=== PATIENT | female | born 1965 | race Two or more races ===

== ENCOUNTER 2017-07-27 08:31 | Outpatient (CLI) | payer OTHER | END 2017-07-27 08:33 | disposition home or self-care (01) | LOC: SONOGRAMA 08:31 | DX: E04.1 Nontoxic single thyroid nodule (principal) ==

== ENCOUNTER 2018-04-02 12:16 | Outpatient (CLI) | payer OTHER | END 2018-04-02 12:20 | disposition home or self-care (01) | LOC: LAB 12:16 | DX: Z11.9 Encounter for screening for infectious and parasitic diseases, unspecified (principal) ==

== ENCOUNTER 2018-08-27 08:25 | Outpatient (CLI) | payer OTHER | END 2018-08-27 08:34 | disposition home or self-care (01) | LOC: MAMO-SONO 08:25 | DX: N64.59 Other signs and symptoms in breast (principal); N64.89 Other specified disorders of breast; Z12.31 Encounter for screening mammogram for malignant neoplasm of breast; N63.10 Unspecified lump in the right breast, unspecified quadrant; N63.20 Unspecified lump in the left breast, unspecified quadrant ==

== ENCOUNTER 2018-08-27 08:51 | Outpatient (CLI) | payer OTHER | END 2018-08-27 14:54 | disposition home or self-care (01) | LOC: LAB 08:51 | DX: E03.8 Other specified hypothyroidism (principal); I10 Essential (primary) hypertension; E78.00 Pure hypercholesterolemia, unspecified; N39.0 Urinary tract infection, site not specified; Z00.00 Encounter for general adult medical examination without abnormal findings; Z11.4 Encounter for screening for human immunodeficiency virus [HIV]; Z12.11 Encounter for screening for malignant neoplasm of colon; E55.9 Vitamin D deficiency, unspecified; Z21 Asymptomatic human immunodeficiency virus [HIV] infection status; R79.9 Abnormal finding of blood chemistry, unspecified; R79.89 Other specified abnormal findings of blood chemistry ==

== ENCOUNTER 2019-12-30 13:58 | Outpatient (CLI) | payer OTHER | END 2019-12-30 14:02 | disposition home or self-care (01) | LOC: MAMO-SONO 13:58 | PROVIDERS: ATTEND Internal Medicine Cardiovascular Disease | DX: Z12.31 Encounter for screening mammogram for malignant neoplasm of breast (principal); E04.1 Nontoxic single thyroid nodule ==

== ENCOUNTER 2020-06-01 07:12 | Outpatient (CLI) | payer OTHER | END 2020-06-01 07:14 | disposition home or self-care (01) | LOC: RAD 07:12 | PROVIDERS: ATTEND Internal Medicine | DX: M25.511 Pain in right shoulder (principal) ==

== ENCOUNTER 2020-06-04 09:24 | Outpatient (CLI) | payer OTHER | END 2020-06-04 15:00 | disposition home or self-care (01) | LOC: PPH VACUNA 09:24 | DX: Z23 Encounter for immunization (principal) ==

== ENCOUNTER 2020-07-20 05:23 | Day surgery (SDC) | payer OTHER | END 2020-07-20 12:35 | disposition home or self-care (01) | LOC: CIR.AMB 05:23 | PROVIDERS: ATTEND Obstetrics & Gynecology | DX: N84.0 Polyp of corpus uteri (principal); Z20.828 Contact with and (suspected) exposure to other viral communicable diseases ==

== ENCOUNTER 2020-10-13 08:12 | Outpatient (CLI) | payer OTHER | END 2020-10-13 10:23 | disposition home or self-care (01) | LOC: MRI 08:12 | PROVIDERS: ATTEND Neuromusculoskeletal Medicine & OMM | DX: R42 Dizziness and giddiness (principal) | CPT/HCPCS: 70544; 70553 ==

== ENCOUNTER 2020-12-09 07:47 | Outpatient (CLI) | payer OTHER | END 2020-12-09 07:49 | disposition home or self-care (01) | LOC: LAB 07:47 | PROVIDERS: ATTEND Internal Medicine | DX: E03.9 Hypothyroidism, unspecified (principal); D64.9 Anemia, unspecified ==

== ENCOUNTER 2021-01-08 13:47 | Outpatient (CLI) | payer OTHER | END 2021-01-08 13:57 | disposition home or self-care (01) | LOC: RAD 13:47 | PROVIDERS: ATTEND Psychiatry & Neurology Clinical Neurophysiology | DX: R07.89 Other chest pain (principal) ==

== ENCOUNTER → 2021-01-18 07:00 | Outpatient (CLI) | payer OTHER | END | disposition home or self-care (01) | LOC: LAB 07:00 | PROVIDERS: ATTEND Neuromusculoskeletal Medicine & OMM | DX: G62.89 Other specified polyneuropathies (principal); R20.2 Paresthesia of skin; E03.8 Other specified hypothyroidism; E11.9 Type 2 diabetes mellitus without complications ==

== ENCOUNTER 2021-03-15 08:00 | Outpatient (CLI) | payer OTHER | END 2021-03-15 08:30 | disposition home or self-care (01) | LOC: PPH VACUNA 08:00 | PROVIDERS: ATTEND Emergency Medicine Pediatric Emergency Medicine | DX: Z23 Encounter for immunization (principal) ==

== ENCOUNTER 2021-03-16 08:00 | Outpatient (CLI) | payer OTHER | END 2021-03-16 08:30 | disposition home or self-care (01) | LOC: PPH VACUNA 08:00 | PROVIDERS: ATTEND Emergency Medicine Pediatric Emergency Medicine | DX: Z23 Encounter for immunization (principal) ==

== ENCOUNTER → 2021-04-21 10:57 | Outpatient (CLI) | payer OTHER | END | disposition home or self-care (01) | LOC: SONOGRAMA → MAMO-SONO 10:57 | DX: N60.11 Diffuse cystic mastopathy of right breast (principal); N60.12 Diffuse cystic mastopathy of left breast ==

== ENCOUNTER 2022-02-16 14:46 | Outpatient (CLI) | payer OTHER | END 2022-02-16 14:51 | disposition home or self-care (01) | LOC: LAB 14:46 | PROVIDERS: ATTEND Preventive Medicine Occupational Medicine | DX: K29.40 Chronic atrophic gastritis without bleeding (principal); K29.30 Chronic superficial gastritis without bleeding; U07.1 COVID-19 ==

== ENCOUNTER 2022-03-09 07:33 | Outpatient (CLI) | payer OTHER ==
[~2022-03-09 07:33] MED LIST: ANTIVERT12.5 MG PO; FLONASE16 G1 NS
== END 2022-03-09 07:38 | disposition home or self-care (01) ==
LOC: PPH VACUNA 07:33
PROVIDERS: ATTEND Emergency Medicine Pediatric Emergency Medicine
DX: Z23 Encounter for immunization (principal)

== ENCOUNTER 2022-03-23 10:44 | Outpatient (CLI) | payer OTHER | END 2022-03-23 10:55 | disposition home or self-care (01) | LOC: RAD 10:44 | PROVIDERS: ATTEND Internal Medicine Pulmonary Disease | DX: J45.20 Mild intermittent asthma, uncomplicated (principal) ==

== ENCOUNTER 2022-05-03 04:53 | Emergency (ER) | payer OTHER ==
[~2022-05-03] VITALS: Ht 149.9 cm; Wt 64.4 kg
== END 2022-05-03 12:43 | disposition home or self-care (01) ==
LOC: ER 04:53
DX: N30.90 Cystitis, unspecified without hematuria (principal); N39.0 Urinary tract infection, site not specified; R10.9 Unspecified abdominal pain

== ENCOUNTER 2022-05-11 07:14 | Outpatient (CLI) | payer OTHER | END 2022-05-11 07:22 | disposition home or self-care (01) | LOC: SONOGRAMA 07:14 | PROVIDERS: ATTEND Internal Medicine Endocrinology, Diabetes & Metabolism | DX: E04.1 Nontoxic single thyroid nodule (principal); E03.9 Hypothyroidism, unspecified ==

== ENCOUNTER 2022-05-20 06:57 | Outpatient (CLI) | payer OTHER | END 2022-05-20 06:58 | disposition home or self-care (01) | LOC: LAB 06:57 | PROVIDERS: ATTEND Internal Medicine | DX: D64.9 Anemia, unspecified (principal); N39.0 Urinary tract infection, site not specified; R10.9 Unspecified abdominal pain; E03.9 Hypothyroidism, unspecified; E78.5 Hyperlipidemia, unspecified; E55.9 Vitamin D deficiency, unspecified; E11.9 Type 2 diabetes mellitus without complications; Z79.01 Long term (current) use of anticoagulants; I10 Essential (primary) hypertension; R00.2 Palpitations ==

== ENCOUNTER → 2022-05-24 | Outpatient (CLI) | payer OTHER | END | disposition home or self-care (01) | LOC: MAMO-SONO 13:29 | PROVIDERS: ATTEND Internal Medicine Cardiovascular Disease | DX: Z80.3 Family history of malignant neoplasm of breast (principal) ==

== ENCOUNTER 2022-06-01 09:21 | Outpatient (CLI) | payer OTHER | END 2022-06-01 09:31 | disposition home or self-care (01) | LOC: PPH VACUNA 09:21 | PROVIDERS: ATTEND Emergency Medicine Pediatric Emergency Medicine | DX: Z23 Encounter for immunization (principal) ==

== ENCOUNTER 2022-06-29 08:39 | Outpatient (CLI) | payer OTHER | END 2022-06-29 08:43 | disposition home or self-care (01) | LOC: LAB 08:39 | PROVIDERS: ATTEND Internal Medicine | DX: R05.3 Chronic cough (principal); K29.40 Chronic atrophic gastritis without bleeding; L20.89 Other atopic dermatitis; R55 Syncope and collapse; Z13.1 Encounter for screening for diabetes mellitus; Z13.220 Encounter for screening for lipoid disorders; Z13.29 Encounter for screening for other suspected endocrine disorder; E55.9 Vitamin D deficiency, unspecified ==

== ENCOUNTER 2022-08-25 10:22 | Outpatient (CLI) | payer OTHER | END 2022-08-25 10:24 | disposition home or self-care (01) | LOC: LAB 10:22 | PROVIDERS: ATTEND Internal Medicine Rheumatology | DX: M06.9 Rheumatoid arthritis, unspecified (principal); M32.19 Other organ or system involvement in systemic lupus erythematosus; M35.00 Sjogren syndrome, unspecified; M33.13 Other dermatomyositis without myopathy; N39.0 Urinary tract infection, site not specified ==

== ENCOUNTER → 2022-09-14 07:37 | Outpatient (CLI) | payer OTHER | END | disposition home or self-care (01) | LOC: LAB 07:37 | PROVIDERS: ATTEND Internal Medicine Gastroenterology | DX: Z11.52 Encounter for screening for COVID-19 (principal); Z20.822 Contact with and (suspected) exposure to COVID-19; Z20.828 Contact with and (suspected) exposure to other viral communicable diseases ==

== ENCOUNTER 2022-10-28 07:17 | Outpatient (CLI) | payer OTHER | END 2022-10-28 07:42 | disposition home or self-care (01) | LOC: LAB 07:17 | PROVIDERS: ATTEND Internal Medicine | DX: R05.3 Chronic cough (principal); K29.40 Chronic atrophic gastritis without bleeding; L20.89 Other atopic dermatitis; R55 Syncope and collapse; Z13.1 Encounter for screening for diabetes mellitus; Z13.220 Encounter for screening for lipoid disorders; Z13.29 Encounter for screening for other suspected endocrine disorder ==

== ENCOUNTER 2022-11-25 07:30 | Outpatient (CLI) | payer OTHER | END 2022-11-25 07:34 | disposition home or self-care (01) | LOC: LAB 07:30 | PROVIDERS: ATTEND Internal Medicine | DX: D64.9 Anemia, unspecified (principal); N39.0 Urinary tract infection, site not specified; R10.9 Unspecified abdominal pain; E03.9 Hypothyroidism, unspecified; E78.5 Hyperlipidemia, unspecified; E55.9 Vitamin D deficiency, unspecified; E11.9 Type 2 diabetes mellitus without complications; R73.09 Other abnormal glucose; I10 Essential (primary) hypertension ==

== ENCOUNTER 2023-01-20 14:13 | Outpatient (CLI) | payer OTHER | END 2023-01-20 14:23 | disposition home or self-care (01) | LOC: MRI 14:13 | PROVIDERS: ATTEND Psychiatry & Neurology Clinical Neurophysiology | DX: M54.16 Radiculopathy, lumbar region (principal) | CPT/HCPCS: 72148 ==

== ENCOUNTER 2023-02-24 08:40 | Outpatient (CLI) | payer OTHER | END 2023-02-24 08:50 | disposition home or self-care (01) | LOC: PPH VACUNA 08:40 | PROVIDERS: ATTEND Emergency Medicine Pediatric Emergency Medicine | DX: Z23 Encounter for immunization (principal) | CPT/HCPCS: 90686; G0008 ==

== ENCOUNTER → 2023-02-27 06:46 | Outpatient (CLI) | payer OTHER | END | disposition home or self-care (01) | LOC: LAB 06:46 | PROVIDERS: ATTEND Internal Medicine | DX: R05.3 Chronic cough (principal); K29.40 Chronic atrophic gastritis without bleeding; L20.89 Other atopic dermatitis; R55 Syncope and collapse; Z13.1 Encounter for screening for diabetes mellitus; Z13.29 Encounter for screening for other suspected endocrine disorder; Z13.220 Encounter for screening for lipoid disorders; Z11.1 Encounter for screening for respiratory tuberculosis ==

== ENCOUNTER 2023-06-30 07:42 | Outpatient (CLI) | payer OTHER | END 2023-06-30 07:51 | disposition home or self-care (01) | LOC: MAMO-SONO 07:42 | PROVIDERS: ATTEND Obstetrics & Gynecology | DX: N63 Unspecified lump in breast (principal); N64.59 Other signs and symptoms in breast; N64.9 Disorder of breast, unspecified; R10.2 Pelvic and perineal pain; N94.10 Unspecified dyspareunia ==

== ENCOUNTER 2024-03-14 13:10 | Outpatient (CLI) | payer OTHER | END 2024-03-14 23:23 | disposition home or self-care (01) | LOC: LAB 13:10 | PROVIDERS: ATTEND Internal Medicine | DX: Z11.3 Encounter for screening for infections with a predominantly sexual mode of transmission (principal) ==

== ENCOUNTER 2024-03-21 11:00 | Outpatient (CLI) | payer OTHER | END 2024-03-21 12:00 | disposition home or self-care (01) | LOC: PPH VACUNA 11:00 | PROVIDERS: ATTEND Emergency Medicine Pediatric Emergency Medicine | DX: Z23 Encounter for immunization (principal) ==

== ENCOUNTER 2024-04-05 07:21 | Outpatient (CLI) | payer OTHER ==
[2024-04-05 07:59] LABS: HEMATOCRIT 38.3 % (36.0-45.00); HEMOGLOBIN 12.7 g/dL (12.0-15.00); MEAN CELL VOLUME 83.2 fL (80.00-100.00); MEAN CORPUSCULAR HEMOGLOBIN 27.6 pg (27.00-32.0); MEAN CORPUSCULAR HGB CONC 33.2 g/dl (32.0-36.0); PLATELET COUNT 246 K/uL (150-450); RED BLOOD COUNT 4.61 M/uL (4.00-6.00); RED CELL DISTRIBUTION WIDTH 14.5 % (11.5-14.5)
[2024-04-05 08:34] LABS: ALBUMIN 3.5 gm/dL (3.4-5.0); BILIRUBIN TOTAL 0.22 mg/dL (0.3-1.2); CALCIUM 9.1 mg/dL (8.5-10.1); CHOL HDL RATIO 2.6 (0-5.0); CREATININE SERUM 0.74 mg/dL (0.55-1.02); GFR 80.33; POTASSIUM 4.35 mEq/L (3.5-5.1); TOTAL PROTEIN 6.5 gm/dL (6.4-8.2); TSH 1.24 uIU/mL (0.358-3.74)
== END 2024-04-05 07:40 | disposition home or self-care (01) ==
LOC: LAB 07:21
PROVIDERS: ATTEND Internal Medicine Pulmonary Disease
DX: D64.9 Anemia, unspecified (principal); R10.9 Unspecified abdominal pain; E03.9 Hypothyroidism, unspecified; E78.5 Hyperlipidemia, unspecified; E55.9 Vitamin D deficiency, unspecified; R80.9 Proteinuria, unspecified; E11.9 Type 2 diabetes mellitus without complications; J45.40 Moderate persistent asthma, uncomplicated; J30.9 Allergic rhinitis, unspecified; J45.30 Mild persistent asthma, uncomplicated

== ENCOUNTER 2024-09-25 10:14 | Outpatient (CLI) | payer OTHER | END 2024-09-25 10:17 | disposition home or self-care (01) | LOC: MAMO-SONO 10:14 | PROVIDERS: ATTEND Obstetrics & Gynecology | DX: N63 Unspecified lump in breast (principal); N64.59 Other signs and symptoms in breast; N64.9 Disorder of breast, unspecified ==

== ENCOUNTER 2025-01-22 11:12 | Outpatient (CLI) | payer OTHER | END 2025-01-22 11:16 | disposition home or self-care (01) | LOC: SONOGRAMA 11:12 | PROVIDERS: ATTEND Obstetrics & Gynecology | DX: Z00.00 Encounter for general adult medical examination without abnormal findings (principal) ==

== ENCOUNTER 2025-01-31 09:52 | Outpatient (CLI) | payer OTHER | END 2025-01-31 10:01 | disposition home or self-care (01) | LOC: LAB 09:52 | PROVIDERS: ATTEND Internal Medicine Infectious Disease | DX: J03.90 Acute tonsillitis, unspecified (principal) ==

== ENCOUNTER 2025-04-02 13:00 | Outpatient (CLI) | payer OTHER | END 2025-04-02 13:10 | disposition home or self-care (01) | LOC: PPH VACUNA 13:00 | PROVIDERS: ATTEND Emergency Medicine Pediatric Emergency Medicine | DX: Z23 Encounter for immunization (principal) ==